=== PATIENT | female | born 1985 | race Caucasian/White ===

== ENCOUNTER 2016-09-24 17:50 | Emergency (ER) | payer MEDICAID, OTHER ==
[2016-09-24] MEDS ORDERED: ONDANSETRON 4 MG/2 ML VIAL IVP ONE ×2 (18:26→19:52)
[2016-09-24] MEDS ORDERED: HYDROmorphONE/DILAUDID 1 MG/ML SYR IVP ONE ×2 (18:26→19:53)
[2016-09-24] MEDS ORDERED: NS 1,000 ML IV ONE ×2 (18:26)
[2016-09-24 18:31] LABS: % IMMATURE GRANULYOCYTES 0.2 % (0.0-1.1); ABSOLUTE IMMATURE GRANULOCYTES 0.02 10^3/uL (0.00-0.10); ADD DIFF? NO; ADD MORPH? NO; ADD SCAN? NO; ATYPICAL LYMPHOCYTE FLAG 10 (0-99); FRAGMENT RBC FLAG 0 (0-99); HEMATOCRIT 41.6 % (38.0-47.0); HEMOGLOBIN 14.5 g/dL (12.6-16.3); LEFT SHIFT FLG 0 (0-99); LIPEMIA HEMOLYSIS FLAG 90 (0-99); MEAN CELL HEMOGLOBIN 32.4 pg (27.9-34.1); MEAN CELL HEMOGLOBIN CONCENTR. 34.9 g/dL (32.4-36.7); MEAN CELL VOLUME 93.1 fL (81.5-99.8); MEAN PLATELET VOLUME 9.9 fL (8.7-11.7); PLATELET CLUMPS FLAG 20 (0-99); PLATELET COUNT 267 10^3/uL (150-400); RED BLOOD CELL COUNT 4.47 10^6/uL (4.18-5.33); RED CELL DISTRIBUTION WIDTH 12.2 % (11.5-15.2)
[2016-09-24 18:49] LABS: COLOR YELLOW; LEUKOCYTE ESTERASE,URINE NEGATIVE (NEGATIVE); NITRITE,URINE NEGATIVE (NEGATIVE)
[2016-09-24 18:58] LABS: MUCUS 1+ /lpf (NONE-1+)
[2016-09-24 19:00] LABS: ALANINE AMINOTRANSFERASE 23 IU/L (9-52); ALBUMIN 4.9 g/dL (3.5-5.0); ALKALINE PHOSPHATASE 62 IU/L (38-126); ANION GAP 17 mEq/L (8-16); ASPARTATE AMINOTRANSFERASE 17 IU/L (14-46); BILIRUBIN,TOTAL 0.5 mg/dL (0.1-1.4); BILIRUBIN-CONJUGATED 0.3 mg/dL (0.0-0.5); BILIRUBIN-UNCONJUGATED 0.2 mg/dL (0.0-1.1); CALCIUM 9.9 mg/dL (8.5-10.4); CARBON DIOXIDE 25 mEq/l (22-31); CHLORIDE 101 mEq/L (97-110); CREATININE 1.1 mg/dL (0.6-1.0); GLOMERULAR FILTRATION RATE 58; GLUCOSE 98 mg/dL (70-100); POTASSIUM 3.6 mEq/L (3.5-5.2); SODIUM 143 mEq/L (134-144); TOTAL PROTEIN 7.8 g/dL (6.3-8.2)
--- NOTE | 2016-09-24 19:45 | US ---
Pelvic Ultrasound (Endovaginal) with color flow and spectral Doppler History: Right lower pelvic pain. Previous appendectomy.. Findings: The pelvis was evaluated from endovaginal approach. UTERUS: Size: 7.3 x 3.1 x 4.6 cm in longitudinal, AP, and transverse projections. Orientation: Retroflexed. Masses: None identified. Endometrium: Normal measuring 9 mm in thickness. ADNEXA: Normal. Small follicles are present bilaterally. Right ovary size: 2.2 x 2.8 x 1.7 cm Left ovary size: 3.3 x 1.8 x 1.8 cm Color flow and spectral Doppler: Normal color flow imaging with normal Doppler waveform bilaterally. Free fluid: Mild amount of physiologic free fluid is noted.. Other findings:None. Impression: Normal pelvic ultrasound for age. Retroflexed uterus. These findings were discussed by telephone with Darrian Wright PA-C at 1943 hrs.
[2016-09-24] MEDS ORDERED: HYDROmorphONE/DILAUDID 1 MG/ML SYR ONE (19:48)
[2016-09-24] MEDS ORDERED: ONDANSETRON 4 MG/2 ML VIAL ONE (19:48)
[2016-09-24 19:53] VITALS: RESP 18
--- NOTE | 2016-09-24 20:18 | EDPHY ---
H & P Stated Complaint: RLQ abd pain x 3 days + nausea HPI/ROS: Chief complaint: Abdominal pain History of present illness: This is a 31-year-old female who presents to the emergency department for evaluation of abdominal pain. Patient reports the onset of symptoms over the last 3 days. She describes severe pain throughout the abdomen but primarily located in the right lower abdomen. Pain radiates down into the right leg and into the back. She has had associated nausea but no vomiting. She denies precipitating factors. She denies alleviating factors. She denies other associated signs or symptoms: No report of fevers or chills, again no vomiting, no diarrhea, no abnormal vaginal discharge or bleeding, no urinary symptoms including no dysuria, frequency, hesitancy or urgency. She has a history of ulcerative colitis, this is not feel similar to past problems. She has a history of chronic pain but is not currently on any pain medications. Review of systems: A 10 point review of systems was obtained and other than described above is negative - Personal History LMP (Females 10-55): Over 28 Days Ago Current Tetanus/Diphtheria Vaccine: Yes Current Tetanus Diphtheria and Acellular Pertussis (TDAP): Yes Tetanus Vaccine Date: 2012 - Medical/Surgical History Hx Asthma: No Hx Chronic Respiratory Disease: No Hx Diabetes: No Hx Cardiac Disease: Yes Hx Renal Disease: No Hx Cirrhosis: No Hx Alcoholism: No Hx HIV/AIDS: No Hx Splenectomy or Spleen Trauma: No Other PMH: lupus, UC, tachycardia, hypertrophic cardiomyopathy, appendectomy - Social History Smoking Status: Never smoked - Physical Exam Exam: General Appearance: Alert, nontoxic. Eyes: Pupils equal and round no pallor or injection. ENT, Mouth: Mucous membranes moist. Respiratory: There are no retractions, lungs are clear to auscultation. Cardiovascular: Tachycardic. Gastrointestinal: Bowel sounds are present. Abdomen is soft, nondistended. Diffuse tenderness most notable in the right lower quadrant. No peritoneal signs. Genitourinary: No CVA tenderness Neurological: Alert and oriented. Strength and sensation intact and symmetrical. Skin: Warm and dry, no rashes. Musculoskeletal: Neck is supple non tender. Extremities are symmetrical, full range of motion. Psychiatric: Patient is oriented X 3, there is no agitation. Constitutional: Initial Vital Signs Temperature (C) 36.5 C 09/24/16 18:01 Heart Rate 125 H 09/24/16 18:01 Respiratory Rate 16 09/24/16 18:01 Blood Pressure 121/93 H 09/24/16 18:01 O2 Sat (%) 96 09/24/16 18:01 O2 Delivery Mode Room Air Allergies/Adverse Reactions: amoxicillin trihydrate [From Augmentin] Allergy (Verified 09/24/16 17:56) fentanyl Allergy (Verified 09/24/16 17:56) ketorolac tromethamine [From Toradol] Allergy (Verified 09/24/16 17:56) potassium clavulanate [From Augmentin] Allergy (Verified 09/24/16 17:56) Home Medications: Medication Instructions Recorded Alprazolam [Xanax] 03/29/15 Effexor 03/29/15 Ms Contin 03/29/15 Oxycodone Cr 03/29/15 Quetiapine Fumarate [Seroquel] 03/29/15 Benadryl 09/24/16 Carafate 1 GM (*) 09/24/16 Hyoscyamine 09/24/16 Imodium A-D 09/24/16 PROPRANOLOL-HCTZ 80-25 MG TAB 09/24/16 Plaquenil 200 mg (*) 09/24/16 Sulfasalazine 09/24/16 busPIRone 09/24/16 morphINE 09/24/16 oxyCODONE/APAP 5/325 [Percocet 1 tab PO Q4H #20 tab 09/24/16 5/325 (*)] traMADol 09/24/16 Medical Decision Making - Diagnostics Imaging: Pelvic ultrasound is unremarkable ED Course/Re-evaluation: Patient discussed with my secondary supervising physician Dr. Tacos Alfonso. Patient presents to the emergency department for abdominal pain with nausea. Pain is primarily in the right lower aspect of the abdomen. Patient is nontoxic. Patient is IV hydrated. She is symptomatically treated with improvement in symptoms. Pelvic ultrasound is unremarkable. No imaging of the appendix is pursued as patient has had an appendectomy. Blood studies are largely unremarkable. Urinalysis does show hematuria. I discussed with the patient this could be from a kidney stone. I have recommended a CT scan to assess for nephrolithiasis or other pathology but she has declined as he has had multiple CT scans in the past due to her UC. She would like to be discharged home. I will discharge her home on a course of Percocet. She has chronic pain patient but has been off pain medications for a number of months. She states she has an appointment with her regular doctor on Monday. I have asked to follow up with her doctor for recheck. She is given strict return precautions. Patient voiced understanding and agreement with plan. Differential Diagnosis: Included but not limited to urinary tract infection, nephrolithiasis, colitis, biliary tract disease, pancreatitis, with associated complications - Data Points Laboratory Results: Laboratory Results 09/24/16 18:15 09/24/16 18:15 09/24/16 09/24/16 09/24/16 19:15 18:15 18:10 WBC 8.09 10^3/uL (3.80-9.50) RBC 4.47 10^6/uL (4.18-5.33) Hgb 14.5 g/dL (12.6-16.3) Hct 41.6 % (38.0-47.0) MCV 93.1 fL (81.5-99.8) MCH 32.4 pg (27.9-34.1) MCHC 34.9 g/dL (32.4-36.7) RDW 12.2 % (11.5-15.2) Plt Count 267 10^3/uL (150-400) MPV 9.9 fL (8.7-11.7) Neut % (Auto) 44.4 % (39.3-74.2) Lymph % (Auto) 46.1 H % (15.0-45.0) [place] % (Auto) 7.5 % (4.5-13.0) Eos % (Auto) 1.2 % (0.6-7.6) Baso % (Auto) 0.6 % (0.3-1.7) Nucleat RBC Rel Count 0.0 % (0.0-0.2) Absolute Neuts (auto) 3.58 10^3/uL (1.70-6.50) Absolute Lymphs (auto) 3.73 H 10^3/uL (1.00-3.00) Absolute Monos (auto) 0.61 10^3/uL (0.30-0.80) Absolute Eos (auto) 0.10 10^3/uL (0.03-0.40) Absolute Basos (auto) 0.05 10^3/uL (0.02-0.10) Absolute Nucleated RBC 0.00 10^3/uL (0-0.01) Immature Gran % 0.2 % (0.0-1.1) Immature Gran # 0.02 10^3/uL (0.00-0.10) Sodium 143 mEq/L (134-144) Potassium 3.6 mEq/L (3.5-5.2) Chloride 101 mEq/L (97-110) Carbon Dioxide 25 mEq/l (22-31) Anion Gap 17 mEq/L (8-16) BUN 27 H mg/dL (7-23) Creatinine 1.1 H mg/dL (0.6-1.0) Estimated GFR 58 Glucose 98 mg/dL (70-100) Calcium 9.9 mg/dL (8.5-10.4) Total Bilirubin 0.5 mg/dL (0.1-1.4) Conjugated Bilirubin 0.3 mg/dL (0.0-0.5) Unconjugated Bilirubin 0.2 mg/dL (0.0-1.1) AST 17 IU/L (14-46) ALT 23 IU/L (9-52) Alkaline Phosphatase 62 IU/L (38-126) Total Protein 7.8 g/dL (6.3-8.2) Albumin 4.9 g/dL (3.5-5.0) Lipase 99.0 IU/L (23-300) Beta HCG, Qual NEGATIVE Urine Color YELLOW Urine Appearance CLEAR Urine pH 5.0 (5.0-7.5) Ur Specific [place] 1.024 (1.002-1.030) Urine Protein NEGATIVE (NEGATIVE) Urine Ketones TRACE H (NEGATIVE) Urine Blood 1+ H (NEGATIVE) Urine Nitrate NEGATIVE (NEGATIVE) Urine Bilirubin NEGATIVE (NEGATIVE) Urine Urobilinogen NEGATIVE EU (0.2-1.0) Ur Leukocyte Esterase NEGATIVE (NEGATIVE) Urine RBC 5-10 H /hpf (0-3) Urine WBC 1-3 /hpf (0-3) Ur Epithelial Cells TRACE /lpf (NONE-1+) Urine Mucus 1+ /lpf (NONE-1+) Ur Culture Indicated? NOT INDICATED (NI) Urine Glucose NEGATIVE (NEGATIVE) Medications Given: Discontinued Medications Hydromorphone HCl (Dilaudid) 1 mg IVP EDNOW ONE Stop: 09/24/16 18:27 Last Admin: 09/24/16 18:45 Dose: 1 mg Hydromorphone HCl (Dilaudid) 1 mg IVP EDNOW ONE Stop: 09/24/16 19:54 Last Admin: 09/24/16 19:54 Dose: 1 mg Sodium Chloride (Ns) 1,000 mls @ 0 mls/hr IV ONCE ONE PRN Reason: Wide Open Stop: 09/24/16 18:27 Last Admin: 09/24/16 18:45 Dose: 1,000 mls Sodium Chloride (Ns) 1,000 mls @ 0 mls/hr IV ONCE ONE PRN Reason: Wide Open Stop: 09/24/16 18:27 Last Admin: 09/24/16 19:13 Dose: 1,000 mls Ondansetron HCl (Zofran) 4 mg IVP EDNOW ONE Stop: 09/24/16 18:27 Last Admin: 09/24/16 18:45 Dose: 4 mg Ondansetron HCl (Zofran) 4 mg IVP EDNOW ONE Stop: 09/24/16 19:53 Last Admin: 09/24/16 19:53 Dose: 4 mg Departure - Departure Disposition: Home, Routine, Self-Care Clinical Impression: Hematuria Abdominal pain Qualifiers: Abdominal location: right lower quadrant Qualifier Code: (R10.31) Right lower quadrant pain Condition: Good Instructions: Abdominal Pain (ED), Hematuria (ED) Additional Instructions: Follow-up with your primary care doctor this week for recheck without fail. Please have recheck your creatinine which was slightly elevated at 1.1 and the blood in your urine. You have been prescribed [Rodman] for pain. [Rodman] contains Tylenol, do not take extra Tylenol/acetaminophen/Apap with it. It is sedating. You were offered a CT scan today, you declined If symptoms worsen or new symptoms develop return to the emergency department immediately for recheck Referrals: IN STATE,. [Primary Care Provider] - As per Instructions Prescriptions: oxyCODONE/APAP 5/325 [Percocet 5/325 (*)] 1 tab PO Q4H #20 tab
[2016-09-24 20:22] VITALS: BP 114/80; PULSE 90; TEMP 98.4; O2SAT 96
== END 2016-09-24 20:31 | disposition home or self-care (01) ==
DX: R10.31 Right lower quadrant pain (principal); R31.9 Hematuria, unspecified
CPT/HCPCS: 96374; J1170; J2405

== ENCOUNTER 2016-10-02 18:52 | Emergency (ER) | payer MEDICAID ==
[2016-10-02 18:57] VITALS: BP 112/87; TEMP 98.6
--- NOTE | 2016-10-02 19:04 | EDPHY ---
H & P Time Seen by Provider: 10/02/16 19:01 HPI/ROS: CHIEF COMPLAINT: Lower abdominal pain. HISTORY OF PRESENT ILLNESS: This is a 31-year-old female with a history of ulcerative colitis, lupus, and hypertrophic cardiomyopathy presenting with lower abdominal pain. She was seen in the ED 8 days ago for similar symptoms, but she declined a CT scan at that time for radiation concerns. She did have an abdominal ultrasound that showed no ovarian cyst. She was discharged with pain medications and the pain subsided. She reports she then developed dysuria, chills, vomiting, and fever 2 days ago. The abdominal pain has also returned. It is non-radiating. She took a large amount of narcotic pain medication today to no relief. She denies diarrhea or other complaints. REVIEW OF SYSTEMS: A complete 10-point review of systems was performed and is negative except for those items mentioned in the HPI. Past Medical/Surgical History: Lupus, ulcerative colitis, hypertrophic cardiomyopathy, appendectomy. Social History: Nonsmoker. Smoking Status: Never smoked Physical Exam: General Appearance: Slurred and slowed speech. Does not appear in pain. Writing in a journal. Eyes: Pupils equal and round, no conjunctival pallor or injection ENT, Mouth: Mucous membranes moist Neck: Normal inspection Back: No CVA tenderness. Respiratory: Lungs are clear to auscultation Cardiovascular: Regular rate and rhythm Gastrointestinal: Abdomen is soft and non- tender Neurological: A&O, nonfocal, normal gait Skin: Warm and dry, no rash Extremities: Nontender, no pedal edema Psychiatric: Mood and affect normal Constitutional: Initial Vital Signs Temperature (C) 37 C 10/02/16 18:54 Heart Rate 120 H 10/02/16 18:54 Respiratory Rate 14 10/02/16 18:54 Blood Pressure 112/87 H 10/02/16 18:54 O2 Sat (%) 95 10/02/16 18:54 O2 Delivery Mode Room Air Allergies/Adverse Reactions: amoxicillin trihydrate [From Augmentin] Allergy (Verified 09/24/16 17:56) fentanyl Allergy (Verified 09/24/16 17:56) ketorolac tromethamine [From Toradol] Allergy (Verified 09/24/16 17:56) potassium clavulanate [From Augmentin] Allergy (Verified 09/24/16 17:56) Home Medications: Medication Instructions Recorded Alprazolam [Xanax] 03/29/15 Effexor 03/29/15 Ms Contin 03/29/15 Oxycodone Cr 03/29/15 Quetiapine Fumarate [Seroquel] 03/29/15 Benadryl 09/24/16 Carafate 1 GM (*) 09/24/16 Hyoscyamine 09/24/16 Imodium A-D 09/24/16 PROPRANOLOL-HCTZ 80-25 MG TAB 09/24/16 Plaquenil 200 mg (*) 09/24/16 Sulfasalazine 09/24/16 busPIRone 09/24/16 morphINE 09/24/16 oxyCODONE/APAP 5/325 [Percocet 1 tab PO Q4H #20 tab 09/24/16 5/325 (*)] traMADol 09/24/16 Medical Decision Making - Diagnostics Imaging: Study: CT of the abdomen/pelvis. Indication: Pain. Results: No acute process. I viewed the images myself on the PACS system. ED Course/Re-evaluation: Prior to seeing this patient, I reviewed the [place] prescriptive history website. She has multiple prescriptions including monthly morphine sulfate, alprazolam and tramadol. She tells me that she has a pain contract with Dr. Bacbock in [place]. I informed her that I would not give her narcotic pain medication unless there is an objective reason to do so. An IV was established and labs ordered including UA. Abdomen/pelvis CT ordered. Evaluation is completely normal, including laboratory studies CT scan the abdomen pelvis. No evidence of urinary tract infection or kidney stone. I discussed results with the patient. She continues to be writing in her journal , without evidence of any pain. I encouraged her to follow up with her primary care physician. Differential Diagnosis: Differential diagnosis includes though it is not limited to appendicitis, cholecystitis, diverticulitis, pyelonephritis, bowel perforation, small bowel obstruction. - Data Points Laboratory Results: Laboratory Results 10/02/16 19:45 10/02/16 19:45 Departure - Departure Disposition: Home, Routine, Self-Care Clinical Impression: Abdominal pain Qualifiers: Abdominal location: lower abdomen, unspecified Qualifier Code: (R10.30) Lower abdominal pain, unspecified Condition: Good Instructions: Acute Abdominal Pain (ED) Additional Instructions: Follow up with your primary care provider in the next 1-2 days. Return to the emergency department for vomiting, diarrhea, worsening pain, or other serious worsening of condition. Referrals: IN STATE,. [Primary Care Provider] - As per Instructions Stand Alone Forms: Narcotic Guidelines Report Scribed for: Terri Perez Report Scribed by: Jorge Schmidt Date of Report: 10/02/16 Time of Report: 19:04 Physician Review and Approval Statement: 10/02/16 19:04 Portions of this note were transcribed by a medical lab specialist. I personally performed a history, physical exam, medical decision making, and confirmed accuracy of information the transcribed note.
[2016-10-02 19:59] LABS: % IMMATURE GRANULYOCYTES 0.2 % (0.0-1.1); ABSOLUTE IMMATURE GRANULOCYTES 0.01 10^3/uL (0.00-0.10); ADD DIFF? NO; ADD MORPH? NO; ADD SCAN? NO; ATYPICAL LYMPHOCYTE FLAG 0 (0-99); FRAGMENT RBC FLAG 0 (0-99); HEMOGLOBIN 12.8 g/dL (12.6-16.3); LEFT SHIFT FLG 0 (0-99); LIPEMIA HEMOLYSIS FLAG 90 (0-99); MEAN CELL HEMOGLOBIN 32.9 pg (27.9-34.1); MEAN CELL HEMOGLOBIN CONCENTR. 35.6 g/dL (32.4-36.7); MEAN CELL VOLUME 92.5 fL (81.5-99.8); MEAN PLATELET VOLUME 9.9 fL (8.7-11.7); PLATELET CLUMPS FLAG 20 (0-99); PLATELET COUNT 199 10^3/uL (150-400); RED BLOOD CELL COUNT 3.89 10^6/uL (4.18-5.33); RED CELL DISTRIBUTION WIDTH 12.4 % (11.5-15.2)
[2016-10-02 20:03] LABS: COLOR YELLOW; LEUKOCYTE ESTERASE,URINE NEGATIVE (NEGATIVE); NITRITE,URINE NEGATIVE (NEGATIVE)
[2016-10-02 20:24] LABS: ANION GAP 10 mEq/L (8-16); CALCIUM 8.8 mg/dL (8.5-10.4); CARBON DIOXIDE 26 mEq/l (22-31); CHLORIDE 102 mEq/L (97-110); CREATININE 0.6 mg/dL (0.6-1.0); GLOMERULAR FILTRATION RATE > 60; GLUCOSE 97 mg/dL (70-100); POTASSIUM 3.6 mEq/L (3.5-5.2); SODIUM 138 mEq/L (134-144)
--- NOTE | 2016-10-02 20:56 | CT ---
CT Scan of the Urinary Tract (Abdomen and Pelvis Without Contrast) Clinical Indications: Flank pain and hematuria in a 31-year-old female; evaluate for possible kidney stone. There is clinical history of ulcerative colitis, appendectomy, small bowel resection and ovar gladis cyst surgery. Technique: Multidetector helical CT imaging was performed from the lung bases to the urinary bladder without contrast. Axial images are obtained at 2.5 mm intervals and reformatted at 1.5 mm thickness . The examination is reviewed on the workstation at multiple window/level settings. Sagittal and wen nal reformations are performed. Dose reduction techniques were utilized for this examination. Comparison to pelvic ultrasound performed September 24, 2016. Findings: Abdomen: There is no nephrolithiasis. The ureters appear normal throughout their course in the abdo men.There is no hydronephrosis. The imaged noncontrast portions of the liver, spleen, gallbladder, pancreas and adrenals are unremar kable. The aorta tapers normally. The lung bases are clear. Pelvis: The bladder contour is normal and the distal ureters are not dilated. The appendix is presu mably absent. No bowel dilatation is seen. No significant free fluid is identified. Multiple pelvic p hleboliths are noted. The uterus is retroflexed. Impression: 1. Negative for nephrolithiasis or obstructive uropathy. 2. See above report for additional findings. A preliminary report was called to Dr. Terri Perez at 2055 hours in the Emergency Department.
[2016-10-02 21:21] VITALS: PULSE 98; RESP 16; O2SAT 94
== END 2016-10-02 21:19 | disposition home or self-care (01) ==
DX: R10.30 Lower abdominal pain, unspecified (principal); Z90.49 Acquired absence of other specified parts of digestive tract

== ENCOUNTER 2016-10-20 14:30 | Emergency (ER) | payer MEDICAID ==
[2016-10-20 14:46] VITALS: RESP 16; O2SAT 98
[2016-10-20] MEDS ORDERED: NS 1,000 ML IV ONE (15:10)
--- NOTE | 2016-10-20 15:16 | EDPHY ---
H & P Stated Complaint: HX UC ABD PAIN BLOODY DIARRHEA HPI/ROS: CHIEF COMPLAINT: Abdominal pain HISTORY OF PRESENT ILLNESS: several days of lower quadrant abdominal pain. Gradual onset. Constant duration. Moderate to severe. Consistent with her previous ulcerative colitis pain. She has ongoing diarrhea without change. No vomiting but nausea. No fever or chills. No pelvic pain. No vaginal bleeding or discharge. Extensive history of ulcerative colitis with last hospitalization last year. She is on sulfasalazine but no DMARDS More steroids. She saw her cath laboratory technician in July and is scheduled to see them again in January. worse with any palpation or movement. Also worse when ambulating. Improved on the left lateral decubitus position. No urinary complaints. No other associated complaints or modifying factors. PREVIOUS ABDOMINAL SURGERIES/DIAGNOSES: Ulcerative colitis, managed by [facility] NPO: early this morning REVIEW OF SYSTEMS: Ten systems reviewed and are negative unless otherwise noted in the HPI EXAMINATION: General Appearance: Alert, no distress Head: normocephalic, atraumatic Eyes: Pupils equal and round, no conjunctival pallor or injection ENT, Mouth: Mucous membranes moist Neck: Normal inspection, supple, non-tender Respiratory: Lungs are clear to auscultation Cardiovascular: Regular rate and rhythm Gastrointestinal: Abdomen is soft. Mild tenderness in the lower quadrants. No tympany. No rigidity. No no guarding or rebound. Nonacute abdomen. Back: non-tender, no bony abnormalities Neurological: A&O, nonfocal, normal gait Skin: Warm and dry, no rash Extremities: Nontender, no pedal edema Psychiatric: Mood and affect normal DIFFERENTIAL DIAGNOSES: Including but not limited to Urgent Care flare, colitis, enteritis, ovarian cysts MDM: 3:30 p.m. abdominal pain in patient with history of ulcerative colitis. Abdominal exam is benign. She is requesting a CT scan as she declined on her last, most recent visit. No pelvic pain. No vaginal complaints. Vital signs stable. She has not been forthcoming about her prescription narcotics. She informed me that her last prescription was in August, but the [place] prescription monitoring report reveals 2 prescriptions in September of this year. 5:[address] of the abdomen and pelvis the radiologist. There is some mild thickening of the descending colon but no inflammation. Also a small ovarian cyst with some fluid around it. No acute findings. No definite evidence of acute ulcerative colitis flare. No other pathology. I reexamined the patient she is feeling better. Her abdominal exam remained benign. We had a lengthy discussion regarding her choice of pain management, and the fact that she is asking for pain medicine here with a contract with a mural painter. I declined providing prescriptions for due to this. I will provide 2 oral doses of pain medication here and she will be discharged home stable condition. She is comfortable with this plan and will follow up with mural painter on Monday and GI specialist next week ED Precautions: Worsening pain. Fever. Bloody stools. Bloody emesis. Constipation or diarrhea. SUPERVISION: Patient was evaluated in conjunction with the supervising physician. Please see their note for details. Source: Patient Exam Limitations: No limitations - Personal History LMP (Females 10-55): 8-14 Days Ago Current Tetanus/Diphtheria Vaccine: Yes Tetanus Vaccine Date: 2012 - Medical/Surgical History Hx Asthma: No Hx Chronic Respiratory Disease: No Hx Diabetes: No Hx Cardiac Disease: Yes Hx Renal Disease: No Hx Cirrhosis: No Hx Alcoholism: No Hx HIV/AIDS: No Hx Splenectomy or Spleen Trauma: No Other PMH: lupus, UC, tachycardia, hypertrophic cardiomyopathy, appendectomy - Social History Smoking Status: Never smoked Constitutional: Initial Vital Signs Temperature (C) 97.7 F 10/20/16 14:43 Heart Rate 82 10/20/16 14:43 Respiratory Rate 16 10/20/16 14:43 Blood Pressure 114/91 H 10/20/16 14:43 O2 Sat (%) 98 10/20/16 14:43 O2 Delivery Mode Room Air Allergies/Adverse Reactions: amoxicillin trihydrate [From Augmentin] Allergy (Verified 10/20/16 14:41) fentanyl Allergy (Verified 10/20/16 14:41) ketorolac tromethamine [From Toradol] Allergy (Verified 10/20/16 14:41) potassium clavulanate [From Augmentin] Allergy (Verified 10/20/16 14:41) Home Medications: Medication Instructions Recorded Alprazolam [Xanax] 03/29/15 Effexor 03/29/15 Quetiapine Fumarate [Seroquel] 03/29/15 Benadryl 09/24/16 Carafate 1 GM (*) 09/24/16 Hyoscyamine 09/24/16 Imodium A-D 09/24/16 PROPRANOLOL-HCTZ 80-25 MG TAB 09/24/16 Plaquenil 200 mg (*) 09/24/16 Sulfasalazine 09/24/16 busPIRone 09/24/16 traMADol 09/24/16 Trileptal 10/20/16 Medical Decision Making - Data Points Laboratory Results: Laboratory Results 10/20/16 15:25 10/20/16 15:25 10/20/16 10/20/16 16:35 15:25 WBC 6.49 10^3/uL (3.80-9.50) RBC 4.25 10^6/uL (4.18-5.33) Hgb 13.9 g/dL (12.6-16.3) Hct 39.2 % (38.0-47.0) MCV 92.2 fL (81.5-99.8) MCH 32.7 pg (27.9-34.1) MCHC 35.5 g/dL (32.4-36.7) RDW 12.2 % (11.5-15.2) Plt Count 241 10^3/uL (150-400) MPV 9.7 fL (8.7-11.7) Neut % (Auto) 51.3 % (39.3-74.2) Lymph % (Auto) 40.5 % (15.0-45.0) [place] % (Auto) 6.0 % (4.5-13.0) Eos % (Auto) 1.2 % (0.6-7.6) Baso % (Auto) 0.8 % (0.3-1.7) Nucleat RBC Rel Count 0.0 % (0.0-0.2) Absolute Neuts (auto) 3.33 10^3/uL (1.70-6.50) Absolute Lymphs (auto) 2.63 10^3/uL (1.00-3.00) Absolute Monos (auto) 0.39 10^3/uL (0.30-0.80) Absolute Eos (auto) 0.08 10^3/uL (0.03-0.40) Absolute Basos (auto) 0.05 10^3/uL (0.02-0.10) Absolute Nucleated RBC 0.00 10^3/uL (0-0.01) Immature Gran % 0.2 % (0.0-1.1) Immature Gran # 0.01 10^3/uL (0.00-0.10) Sodium 139 mEq/L (134-144) Potassium 3.8 mEq/L (3.5-5.2) Chloride 103 mEq/L (97-110) Carbon Dioxide 25 mEq/l (22-31) Anion Gap 11 mEq/L (8-16) BUN 11 mg/dL (7-23) Creatinine 0.6 mg/dL (0.6-1.0) Estimated GFR > 60 Glucose 82 mg/dL (70-100) Calcium 9.2 mg/dL (8.5-10.4) Total Bilirubin 0.8 mg/dL (0.1-1.4) Conjugated Bilirubin 0.3 mg/dL (0.0-0.5) Unconjugated Bilirubin 0.5 mg/dL (0.0-1.1) AST 25 IU/L (14-46) ALT 33 IU/L (9-52) Alkaline Phosphatase 74 IU/L (38-126) Total Protein 7.5 g/dL (6.3-8.2) Albumin 4.1 g/dL (3.5-5.0) Lipase 44.0 IU/L (23-300) Beta HCG, Qual NEGATIVE Urine Color YELLOW Urine Appearance CLEAR Urine pH 6.0 (5.0-7.5) Ur Specific [place] 1.019 (1.002-1.030) Urine Protein NEGATIVE (NEGATIVE) Urine Ketones NEGATIVE (NEGATIVE) Urine Blood NEGATIVE (NEGATIVE) Urine Nitrate NEGATIVE (NEGATIVE) Urine Bilirubin NEGATIVE (NEGATIVE) Urine Urobilinogen NEGATIVE EU (0.2-1.0) Ur Leukocyte Esterase NEGATIVE (NEGATIVE) Ur Culture Indicated? NOT INDICATED (NI) Urine Glucose NEGATIVE (NEGATIVE) Medications Given: Discontinued Medications Hydromorphone HCl (Dilaudid) 1 mg IVP EDNOW ONE Stop: 10/20/16 15:34 Last Admin: 10/20/16 15:40 Dose: 1 mg Sodium Chloride (Ns) 1,000 mls @ 0 mls/hr IV ONCE ONE PRN Reason: Wide Open Stop: 10/20/16 15:11 Last Admin: 10/20/16 15:28 Dose: 1,000 mls Ondansetron HCl (Zofran) 4 mg IVP EDNOW ONE Stop: 10/20/16 15:34 Last Admin: 10/20/16 15:40 Dose: 4 mg Departure - Departure Disposition: Home, Routine, Self-Care Clinical Impression: Abdominal pain Qualifiers: Abdominal location: generalized Qualifier Code: (R10.84) Generalized abdominal pain Condition: Good Instructions: Acute Abdominal Pain (ED), Chronic Abdominal Pain (ED) Additional Instructions: Follow-up with primary care physician, cath laboratory technician, and clockmaker for further care. Return to the ER for worsening pain or any pelvic pain. Referrals: IN STATE,. [Primary Care Provider] - As per Instructions Judy Zhang MD [Medical Doctor] - As per Instructions
[2016-10-20] MEDS ORDERED: ONDANSETRON 4 MG/2 ML VIAL IVP ONE (15:33)
[2016-10-20] MEDS ORDERED: HYDROmorphONE/DILAUDID 1 MG/ML SYR IVP ONE (15:33)
[2016-10-20 15:36] LABS: % IMMATURE GRANULYOCYTES 0.2 % (0.0-1.1); ABSOLUTE IMMATURE GRANULOCYTES 0.01 10^3/uL (0.00-0.10); ADD DIFF? NO; ADD MORPH? NO; ADD SCAN? NO; ATYPICAL LYMPHOCYTE FLAG 20 (0-99); FRAGMENT RBC FLAG 0 (0-99); HEMATOCRIT 39.2 % (38.0-47.0); HEMOGLOBIN 13.9 g/dL (12.6-16.3); LEFT SHIFT FLG 0 (0-99); LIPEMIA HEMOLYSIS FLAG 90 (0-99); MEAN CELL HEMOGLOBIN 32.7 pg (27.9-34.1); MEAN CELL HEMOGLOBIN CONCENTR. 35.5 g/dL (32.4-36.7); MEAN CELL VOLUME 92.2 fL (81.5-99.8); MEAN PLATELET VOLUME 9.7 fL (8.7-11.7); PLATELET CLUMPS FLAG 0 (0-99); PLATELET COUNT 241 10^3/uL (150-400); RED BLOOD CELL COUNT 4.25 10^6/uL (4.18-5.33); RED CELL DISTRIBUTION WIDTH 12.2 % (11.5-15.2)
[2016-10-20 15:53] LABS: ALANINE AMINOTRANSFERASE 33 IU/L (9-52); ALBUMIN 4.1 g/dL (3.5-5.0); ALKALINE PHOSPHATASE 74 IU/L (38-126); ANION GAP 11 mEq/L (8-16); ASPARTATE AMINOTRANSFERASE 25 IU/L (14-46); BILIRUBIN,TOTAL 0.8 mg/dL (0.1-1.4); BILIRUBIN-CONJUGATED 0.3 mg/dL (0.0-0.5); BILIRUBIN-UNCONJUGATED 0.5 mg/dL (0.0-1.1); CALCIUM 9.2 mg/dL (8.5-10.4); CARBON DIOXIDE 25 mEq/l (22-31); CHLORIDE 103 mEq/L (97-110); CREATININE 0.6 mg/dL (0.6-1.0); GLOMERULAR FILTRATION RATE > 60; GLUCOSE 82 mg/dL (70-100); POTASSIUM 3.8 mEq/L (3.5-5.2); SODIUM 139 mEq/L (134-144); TOTAL PROTEIN 7.5 g/dL (6.3-8.2)
[2016-10-20] MEDS ORDERED: IOPAMIDOL (ISOVUE-300) 100 ML BTL IV ONE (15:56)
[2016-10-20 16:49] LABS: COLOR YELLOW; LEUKOCYTE ESTERASE,URINE NEGATIVE (NEGATIVE); NITRITE,URINE NEGATIVE (NEGATIVE)
[2016-10-20] MEDS ORDERED: OXYCODONE/APAP 5/325 TAB PO ONE (17:07)
--- NOTE | 2016-10-20 17:09 | CT ---
CT Scan of the Abdomen and Pelvis (With Contrast) at 1620 Hours History: Lower abdominal pain. History of ulcerative colitis. Comparison: CT October 02, 2016. Technique: Axial computed tomographic images of the abdomen and pelvis were obtained with the unevent ful intravenous administration of 80 mL Isovue-300 contrast. No oral or rectal contrast which limits the study. Dose reduction techniques were utilized. CT Abdominal Findings: Lung bases: Normal. Liver: Normal. Biliary system: No obstruction. Spleen: Normal. Pancreas: Normal. Adrenals: Normal. Kidneys: No obstruction or solid masses.. Abdominal Aorta: No aneurysm. No obstruction or significant adenopathy. Mild circumferential wall thickening of the descending colo n extending for 6 cm of unsure significance. No definite surrounding inflammatory changes. No small b owel distention. No pneumoperitoneum. CT Pelvic Findings: Appendix surgically absent. Small amount of free fluid in the posterior right nita e of the pelvis. A left ovarian 2.1 x 1.4 cm dominant follicle or simple cyst. Impression: 1. No bowel obstruction, pneumoperitoneum, or drainable abscess. 2. Mild circumferential wall thickening of the proximal descending colon which may represent mild col itis although there is no surrounding inflammatory change or bowel obstruction. 3. Small amount of free fluid in posterior right side of the pelvis with a dominant left ovarian foll icle or simple cyst measuring 2.1 cm. Consider ultrasound pelvis if clinically indicated. Findings and recommendations discussed with emergency department physician' hardware sales assistant, Ramesh Baker PA-C, at 1655 hours, today. Final report concurs with initial preliminary interpretation.
[2016-10-20 17:13] VITALS: BP 103/86; PULSE 78; TEMP 98.6
== END 2016-10-20 17:13 | disposition home or self-care (01) ==
DX: R10.84 Generalized abdominal pain (principal); Z90.49 Acquired absence of other specified parts of digestive tract
CPT/HCPCS: 96374; J1170; J2405; Q9967

== ENCOUNTER 2016-10-21 10:11 | Emergency (ER) | payer MEDICAID ==
[2016-10-21 10:21] VITALS: BP 129/91; PULSE 105; RESP 18; TEMP 97.7; O2SAT 96
--- NOTE | 2016-10-21 10:46 | EDPHY ---
HPI/HX/ROS/PE/MDM Narrative: CHIEF COMPLAINT: Pain management HPI: The patient is a 31 y/o female, with a history of ulcerative colitis, returning to the ED for the second time in 24 hours requesting pain management for her chronic abdominal pain until she can see her pain management doctor on Monday. She was seen here yesterday afternoon for the same pain and had a largely negative abdominal CT. She says, "there was a misunderstanding of my pain medication" last night with the ED physician. She says she is on a pain contract with her doctor in [place] that gives her 60 pills of 15mg morphine monthly as well as 60 pills of oxycodone, which she only received 15 pills of since her doctor was out of town. She initially tells me she hasn't morphine since August then says her last dose was 2 weeks ago. She is out of oxycodone and says the morphine doesn't help unless she takes 60mg twice daily, which she doesn't want to take because "it's too high." Although she then says it's because she doesn't have enough to take through the weekend until she sees her doctor Monday because she took more than prescribed in August. Another explanation she gives me is that she filled the morphine prescription, but didn' t take it. She reports associated vomiting, temperature swings, and vaginal discharge with her abdominal pain today. She says she contacted her pain doctor and they were not able to help her. REVIEW OF SYSTEMS: Aside from elements discussed in the HPI, a comprehensive 10-point review of systems was reviewed and is negative. PMH: Ulcerative colitis, 4 ovarian cysts surgically removed. Prior medical records reviewed including ED visit 10/20/16 for the same complaint. SOCIAL HISTORY: Pain doctor: Dr. Will Dumont, [facility]. [phone] PHYSICAL EXAM: General:Patient is alert, in no acute distress. ENT:Eyes are normal to inspection. ENT inspection normal. Neck: Normal inspection. Full range of motion. Respiratory:No respiratory distress. Breath sounds normal bilaterally. Cardiovascular: Regular rate and rhythm. Strong peripheral pulses. Normal cap refill. Abdomen:The abdomen has diffuse tenderness to palpation. There are no peritoneal signs. There are normal bowel sounds. Back: Normal to inspection. No tenderness to palpation. Skin: Normal color. No rash. Warm and dry. Extremities: Normal appearance. Full range of motion. Neuro: Oriented x3. Normal motor function. Normal sensory function. ED Course: 1144: Consulted with ESTIMATOR BINDING Laurel Garcia at the patient's pain clinic. She does not recommend filling patient's narcotic prescription and she should follow up with their office on Monday as scheduled. 1158: I discussed this with the patient. I advised her that the ED does not fill narcotic prescriptions for chronic pain. MDM: This patient returns to the emergency department after extensive workup last night complaining of continued abdominal pain. I had extensive discussion with her. The details of her story changed somewhat over the course of our conversation. Ultimately the patient complains of intractable pain but also states that she has oral morphine at home which she has not been taking this because she does not have enough of it. This seems unusual and certainly concerning. I have discussed the patient at length after obtaining her permission with her nurse practitioner [facility] and [place]. The piter [employer] nurse practitioner recommended I would not fill additional prescription for the patient. I explained this to the patient who was upset. Given recent negative workup, I see no indication for further workup at this time. General Time Seen by Provider: 10/21/16 10:28 Initial Vital Signs: Initial Vital Signs Temperature (C) 36.5 C 10/21/16 10:18 Heart Rate 105 H 10/21/16 10:18 Respiratory Rate 18 10/21/16 10:18 Blood Pressure 129/91 H 10/21/16 10:18 O2 Sat (%) 96 10/21/16 10:18 O2 Delivery Mode Room Air Allergies/Adverse Reactions: amoxicillin trihydrate [From Augmentin] Allergy (Verified 10/20/16 14:41) fentanyl Allergy (Verified 10/20/16 14:41) ketorolac tromethamine [From Toradol] Allergy (Verified 10/20/16 14:41) potassium clavulanate [From Augmentin] Allergy (Verified 10/20/16 14:41) Home Medications: Medication Instructions Recorded Alprazolam [Xanax] 03/29/15 Effexor 03/29/15 Quetiapine Fumarate [Seroquel] 03/29/15 Benadryl 09/24/16 Carafate 1 GM (*) 09/24/16 Hyoscyamine 09/24/16 Imodium A-D 09/24/16 PROPRANOLOL-HCTZ 80-25 MG TAB 09/24/16 Plaquenil 200 mg (*) 09/24/16 Sulfasalazine 09/24/16 busPIRone 09/24/16 traMADol 09/24/16 Trileptal 10/20/16 morphINE 10/21/16 Departure - Departure Disposition: Home, Routine, Self-Care Clinical Impression: Chronic abdominal pain Condition: Good Instructions: Chronic Abdominal Pain (ED) Additional Instructions: Follow up with your pain doctor on Monday at 4pm as scheduled. Be aware that the ED does not fill narcotic prescriptions for chronic pain. Referrals: [place],. [Primary Care Provider] - As per Instructions Report Scribed for: Bony Ayers Report Scribed by: Meaghan Wilkes Date of Report: 10/21/16 Time of Report: 10:46 Physician Review and Approval Statement: Portions of this note were transcribed by an ED scribe. I personally performed the history, physical exam, and medical decision making; and confirm the accuracy of the information in the transcribed note.
== END 2016-10-21 12:09 | disposition home or self-care (01) ==
DX: R10.84 Generalized abdominal pain (principal); G89.29 Other chronic pain